=== PATIENT | male | born 1985 | race African-American/Black ===

== ENCOUNTER 2024-12-22 16:08 | Emergency (ER) | payer MEDICAID, OTHER ==
[~2024-12-22] VITALS: Ht 182.9 cm; Wt 85.0 kg
[~2024-12-22 16:08] MED LIST: OMEP20TA23 PO; SUCR1TAB PO; TRAM50TA94 PO
[2024-12-22 16:14] VITALS: BP 122/77; PULSE 86; RESP 18; TEMP 36.9; O2SAT 96
[2024-12-22 16:43] LABS: BASOPHILS % 0.6 % (0.0-2.0); EOSINOPHILS % 0.7 % (0.0-5.0); HEMATOCRIT. 45.9 % (42.0-52.0); LYMPHOCYTES % 29.2 % (20.0-50.0); MEAN CORPUSCULAR HEMOGLOBIN 27.7 pg (28.0-32.0); MEAN CORPUSCULAR HGB CONC 32.7 g/dL (31.0-37.0); MEAN CORPUSCULAR VOLUME 84.7 fL (80.0-94.0); MEAN PLATELET VOLUME 8.2 fl (7.4-10.4); MONOCYTES % 7.1 % (2.0-8.0); NEUTROPHILS % 62.4 % (40.0-76.0); PLATELET 232 x1000/uL (130-400); RED BLOOD CELL COUNT 5.42 mill/uL (4.7-6.1); RED CELL DISTRIBUTION WIDTH 15.2 % (11.6-14.6); WHITE BLOOD COUNT 4.8 x1000/uL (4.5-11.0)
[2024-12-22 16:51] LABS: CHLORIDE 107 mEq/L (98-107); SODIUM 139 mEq/L (136-145)
[2024-12-22 16:52] LABS: CARBON DIOXIDE 25 mEq/L (21-32)
[2024-12-22 16:53] LABS: CALCIUM 9.2 mg/dL (8.7-10.4)
[2024-12-22 16:57] LABS: CREATININE 0.9 mg/dL (0.6-1.3); GLUCOSE 113 mg/dL (70-105); UREA NITROGEN BLOOD 12 mg/dL (9-23)
[2024-12-22 16:58] LABS: TROPONIN I HIGH SENSITIVITY 5 ng/L (3.0-53)
== END 2024-12-22 21:06 | disposition left against medical advice (07) ==
LOC: ER 16:08
DX: R07.89 Other chest pain (principal); Z98.890 Other specified postprocedural states; Z53.21 Procedure and treatment not carried out due to patient leaving prior to being seen by health care provider
CPT/HCPCS: 36415; 71045; 80048; 84484; 85025; 93005